=== PATIENT | female | born 1985 | race Two or more races ===

== ENCOUNTER 2021-10-09 11:10 | Emergency (ER) | payer MEDICAID ==
[~2021-10-09] VITALS: Ht 157.5 cm; Wt 64.0 kg
[2021-10-09] MEDS ORDERED: KETOROLAC 30MG/ML VIAL IM STA (11:52)
[2021-10-09] MEDS ORDERED: ONDANSETRON 4MG ODT PO ONE (12:00)
[2021-10-09 12:26] LABS: BASOPHILS % 0.1 % (0.0-2.0); EOSINOPHILS % 0.2 % (0.0-5.0); HEMATOCRIT. 42.7 % (36.0-48.0); HEMOGLOBIN. 14.6 g/dL (12.0-16.0); LYMPHOCYTES % 7.6 % (20.0-50.0); MEAN CORPUSCULAR HEMOGLOBIN 31.2 pg (28.0-32.0); MEAN CORPUSCULAR VOLUME 90.9 fL (81.0-99.0); MEAN PLATELET VOLUME 8.7 fl (7.4-10.4); MONOCYTES % 2.9 % (2.0-8.0); NEUTROPHILS % 89.2 % (40.0-76.0); PLATELET 238 x1000/uL (130-400); RED CELL DISTRIBUTION WIDTH 12.8 % (11.6-14.6)
[2021-10-09 12:30] LABS: CHLORIDE 107 mEq/L (98-107)
[2021-10-09 13:00] LABS: HCG SCREEN NEGATIVE
[2021-10-09 13:17] LABS: CLARITY URINE CLEAR (CLEAR); COLOR URINE DARK YELLOW (YELLOW); KETONES URINE TRACE (NEGATIVE); LEUKOCYTE ESTERASE URINE NEGATIVE (NEGATIVE); NITRITE URINE NEGATIVE (NEGATIVE); OCCULT BLOOD URINE 3+ (NEGATIVE); PROTEIN URINE TRACE (NEGATIVE); SPECIFIC GRAVITY URINE 1.027 (1.005-1.030)
[2021-10-09] MEDS ORDERED: CEPH500T MT (16:42)
[2021-10-09] MEDS ORDERED: IBUP-2029 MT (16:42)
[2021-10-09 17:14] VITALS: BP 125/71
== END 2021-10-09 17:15 | disposition home or self-care (01) ==
LOC: ER 12:32
DX: R10.11 Right upper quadrant pain (principal); N39.0 Urinary tract infection, site not specified
CPT/HCPCS: 36415; 74176; 76705; 80048; 81003; 81025; 84703; 85025; 93005; 96372; 99285; J1885; Q0162

== ENCOUNTER 2025-01-29 16:20 | Emergency (ER) | payer MEDICAID ==
[~2025-01-29] VITALS: Ht 160 cm; Wt 63.6 kg
[~2025-01-29 16:20] MED LIST: CEPH500T MT; IBUP-2029 MT
[2025-01-29 17:02] VITALS: TEMP 36.9; O2SAT 99
[2025-01-29] MEDS: TETRACAINE 0.5% OPHTH DROPS 4ML LEFTEYE ONE (17:41)
[2025-01-29] MEDS: FLUORESCEIN SODIUM 1MG/STRIP LEFTEYE ONE (17:41)
[2025-01-29] MEDS ORDERED: SULF1TAB48 MT (18:01)
[2025-01-29] MEDS ORDERED: AMOX1TAB16 MT (18:01)
[2025-01-29] MEDS ORDERED: IBUP-2029 MT (18:03)
[2025-01-29 18:46] VITALS: BP 121/75; PULSE 86; RESP 20; O2SAT 99
== END 2025-01-29 18:47 | disposition home or self-care (01) ==
LOC: ER 16:20
DX: L03.213 Periorbital cellulitis (principal)
CPT/HCPCS: 99283